=== PATIENT | male | born 1940 | race Caucasian/White ===

== ENCOUNTER 2023-01-31 13:28 | Outpatient (AMB) | payer MEDICARE, SELFPAY ==
[2023-01-31 13:48] VITALS: BP 130/70; PULSE 57; BMI 33.3
--- NOTE | 2023-01-31 13:48 | HO.NEPHOV_ITS ---
HPI HPI Comments History of Present Illness Details Cheo is a 82 year old male whom I had the pleasure of seeing in follow up for CKD and hypertension. He had a new diagnosis of HOCM and is on metoprolol. He did not undergo genetic testing. His A1c has been better and is on no oral hypoglycemic medications. He had no recent exacerbation of gout. He has no orthostasis. He denies chest pain, dizziness, PND, orthopnea, urinary symptoms or edema. His renal functions have been stable. There were no new medications initiated. He did not have any new complaints at time of this office visit. [facility] Medical History (Updated 01/31/23 @ 14:01 by Donald Larose MD) TIA (transient ischemic attack) Carotid artery disease Kidney stone Essential (primary) hypertension Chronic kidney disease, stage 3a Surgical History (Updated 01/31/23 @ 14:01 by Tatiana Nieves MA) Status post carotid surgery S/P hip replacement H/O vasectomy H/O hemorrhoidectomy Social History (Updated 01/31/23 @ 13:54 by Tatiana Nieves MA) Alcohol intake: never Patient Tobacco Use Status: Never used Tobacco Vital Signs 01/31/23 13:48 Height 5 ft 10.5 in Weight 235 lb 2 oz BMI 33.3 BP 130/70 Blood Pressure Location Lt brachial Position Sitting Pulse 57 Pulse Source Pulse Oximeter Physical Exam Vital Signs: Last Vital Signs Pulse 57 01/31/23 13:48 BP 130/70 01/31/23 13:48 BMI result Body Mass Index 33.3 Const General: comfortable and no acute distress Orientation/consciousness: patient oriented x3 HEENT Head: Yes normocephalic Mouth: Normal oral and palatal mucosa present Eyes EOM: EOMs intact bilaterally Neck Neck: Yes supple Resp Auscultation: clear to auscultation bilaterally Cardio Jugular venous distension: no JVD Rate: regular rate Heart sounds: Murmur heart sound present GI Palpation (GI): Soft to palpation Auscultation: normal bowel sounds General: Yes no CVA tenderness Back/Spine/Pelvis Back: no CVA tenderness Skin General skin exam: no rashes or lesions noted Neuro General: patient oriented x3 and moves all extremities Extrem General: Yes no pedal edema Results Reviewed Results Reviewed: CHEM GENERAL Na 140 K 5.1 Cl 104 Bicarb 24 Anion 12 Glucose 91 BUN 30 H Creatinine 1.4 H Calcium 10.5 Phos 3.5 Albumin 5.2 URINE OTHER Urine Protein 8 TP/Creat 0.05 Urine Creat 164.3 Assessment & Plan Assessment & Plan (1) Chronic kidney disease, stage 3a: Code(s): N18.31 - Chronic kidney disease, stage 3a (2) Essential (primary) hypertension: Code(s): I10 - Essential (primary) hypertension (3) Kidney stone: Code(s): N20.0 - Calculus of kidney Plan Renal function stable at baseline On ACEI- tolerating well Avoid NSAID's if possible Keep up with good hydration Needs to loose weight No active issues with renal stones May be candidate for Jardiance/Farxiga Follow up blood work/urine studies ordered All his and his 's questions answered Time for documentation/ data review/encounter 41 minutes Coding Level of Care Code Est Pt Level 4 (70284) Diagnoses Chronic kidney disease, stage 3a N18.31 Essential (primary) hypertension I10 Kidney stone N20.0
== END 2023-01-31 14:39 | disposition home or self-care (01) ==
PROVIDERS: Visit Provider Internal Medicine Nephrology
DX: N18.31 Chronic kidney disease, stage 3a (principal); I12.9 Hypertensive chronic kidney disease with stage 1 through stage 4 chronic kidney disease, or unspecified chronic kidney disease; N20.0 Calculus of kidney
CPT/HCPCS: 99214

== ENCOUNTER → 2023-01-31 13:28 | Outpatient (BNVA) | payer MEDICARE, SELFPAY | PROVIDERS: Visit Provider Internal Medicine Nephrology | DX: I12.9 Hypertensive chronic kidney disease with stage 1 through stage 4 chronic kidney disease, or unspecified chronic kidney disease (principal); N18.31 Chronic kidney disease, stage 3a; N20.0 Calculus of kidney | CPT/HCPCS: 99212 ==

== ENCOUNTER 2023-08-11 12:09 | Outpatient (AMB) | payer MEDICARE, SELFPAY ==
[2023-08-11 12:16] VITALS: BP 128/64; PULSE 50; O2SAT 92; BMI 32.0
--- NOTE | 2023-08-11 12:16 | HO.NEPHOV ---
Vital Signs 08/11/23 12:16 Height 5 ft 10.5 in Weight 226 lb BMI 32.0 BP 128/64 Blood Pressure Location Lt brachial Position Sitting Pulse 50 Pulse Source Pulse Oximeter Pulse Oximetry (%) 92 Oxygen Delivery Method Room Air Intake Visit Reasons: 6M follow up/ Confirmed Ironer Required: No Accompanied by: Spouse Allergies Penicillins Allergy (Verified 08/11/23 12:21) Unknown tramadol Allergy (Verified 08/11/23 12:21) Unknown bee venom Allergy (Uncoded 01/31/23 13:34) Unknown HPI Comments Details: Cheo is a 82 year old male whom I had the pleasure of seeing in follow up for CKD and hypertension. He has a diagnosis of HOCM and is on metoprolol. He did not undergo genetic testing. He had no recent exacerbation of gout. He has no orthostasis. He denies chest pain, dizziness, PND, orthopnea, urinary symptoms or edema. His renal functions have been stable. There were no new medications initiated. He did not have any new complaints at time of this office visit. [facility] Medical History TIA (transient ischemic attack) Carotid artery disease Kidney stone Essential (primary) hypertension Chronic kidney disease, stage 3a Surgical History Status post carotid surgery S/P hip replacement H/O vasectomy H/O hemorrhoidectomy Social History Alcohol intake: never Patient Tobacco Use Status: Never used Tobacco Physical Exam Vital Signs: Last Vital Signs Pulse 50 08/11/23 12:16 BP 128/64 08/11/23 12:16 Pulse Ox 92 08/11/23 12:16 Oxygen Delivery Method Room Air 08/11/23 12:16 BMI result Body Mass Index 32.0 Const General: comfortable and no acute distress Orientation/consciousness: patient oriented x3 HEENT Head: Yes normocephalic Mouth: Normal oral and palatal mucosa present Eyes EOM: EOMs intact bilaterally Neck Neck: Yes supple Resp Auscultation: clear to auscultation bilaterally Cardio Jugular venous distension: no JVD Rate: regular rate GI Palpation (GI): Soft to palpation Auscultation: normal bowel sounds General: Yes no CVA tenderness Back/Spine/Pelvis Back: no CVA tenderness Skin General skin exam: no rashes or lesions noted Neuro General: patient oriented x3 and moves all extremities Extrem General: Yes no pedal edema Results Reviewed Nephrology Results: No Data to Display Assessment & Plan Assessment & Plan (1) Chronic kidney disease, stage 3a: Code(s): N18.31 - Chronic kidney disease, stage 3a Category: Medical (2) Essential (primary) hypertension: Code(s): I10 - Essential (primary) hypertension Category: Medical (3) Kidney stone: Code(s): N20.0 - Calculus of kidney Category: Medical (4) Hyperuricemia: Code(s): E79.0 - Hyperuricemia without signs of inflammatory arthritis and tophaceous disease Category: Medical Plan Renal function stable at baseline On ACEI- tolerating well Avoid NSAID's if possible Keep up with good hydration Needs to loose weight No active issues with renal stones If his K goes on 5.5,I shall start Kayexalate 30 Gm once a week May be candidate for Mariel/Nilay Follow up blood work ordered All his and his 's questions answered Orders: Orders Blood Urea Nitrogen Today E79.0 - Hyperuricemia without signs of inflammatory arthritis and tophaceous disease, I10 - Essential (primary) hypertension, N18.31 - Chronic kidney disease, stage 3a, N20.0 - Calculus of kidney Creatinine Today E79.0 - Hyperuricemia without signs of inflammatory arthritis and tophaceous disease, I10 - Essential (primary) hypertension, N18.31 - Chronic kidney disease, stage 3a, N20.0 - Calculus of kidney Electrolytes Today E79.0 - Hyperuricemia without signs of inflammatory arthritis and tophaceous disease, I10 - Essential (primary) hypertension, N18.31 - Chronic kidney disease, stage 3a, N20.0 - Calculus of kidney Coding Level of Care Code Est Pt Level 4 (27236) Diagnoses Chronic kidney disease, stage 3a N18.31 Essential (primary) hypertension I10 Kidney stone N20.0 Hyperuricemia E79.0
== END 2023-08-11 12:52 | disposition home or self-care (01) ==
PROVIDERS: Visit Provider Internal Medicine Nephrology
DX: N18.31 Chronic kidney disease, stage 3a (principal); I10 Essential (primary) hypertension; N20.0 Calculus of kidney; E79.0 Hyperuricemia without signs of inflammatory arthritis and tophaceous disease
CPT/HCPCS: 99214

== ENCOUNTER → 2023-08-11 12:09 | Outpatient (BNVA) | payer MEDICARE, SELFPAY | PROVIDERS: Visit Provider Internal Medicine Nephrology | DX: I12.9 Hypertensive chronic kidney disease with stage 1 through stage 4 chronic kidney disease, or unspecified chronic kidney disease (principal); N18.31 Chronic kidney disease, stage 3a; N20.0 Calculus of kidney; E79.0 Hyperuricemia without signs of inflammatory arthritis and tophaceous disease | CPT/HCPCS: 99212 ==

== ENCOUNTER 2024-02-09 13:55 | Outpatient (AMB) | payer MEDICARE, SELFPAY ==
--- NOTE | 2024-02-09 14:06 | HO.NEPHOV ---
Vital Signs 02/09/24 14:07 Height 55 ft 10 in Weight 227 lb 8 oz BMI 0.4 BP 118/60 Blood Pressure Location Lt brachial Position Sitting Pulse 53 Pulse Source Pulse Oximeter Pulse Oximetry (%) 92 Oxygen Delivery Method Room Air Intake Visit Reasons: 6 mon follow up-Conf Investment Strategist Required: No Accompanied by: Spouse Allergies Penicillins Allergy (Verified 02/09/24 14:08) Unknown tramadol Allergy (Verified 02/09/24 14:08) Unknown bee venom Allergy (Uncoded 01/31/23 13:34) Unknown HPI Comments Details: Cheo is a 82 year old male whom I had the pleasure of seeing in follow up for CKD and hypertension. He has a diagnosis of HOCM and is on metoprolol. He did not undergo genetic testing. He had no recent exacerbation of gout. He has no orthostasis. He denies chest pain, dizziness, PND, orthopnea, urinary symptoms or edema. His renal functions have been stable. He did not have any new complaints at time of this office visit. [facility] Medical History TIA (transient ischemic attack) Carotid artery disease Kidney stone Essential (primary) hypertension Chronic kidney disease, stage 3a Surgical History Status post carotid surgery S/P hip replacement H/O vasectomy H/O hemorrhoidectomy Social History Alcohol intake: never Patient Tobacco Use Status: Never used Tobacco Review of Systems Const All systems reviewed & are unremarkable except as noted in HPI and below Physical Exam Vital Signs: Last Vital Signs Pulse 53 02/09/24 14:07 BP 118/60 02/09/24 14:07 Pulse Ox 92 02/09/24 14:07 Oxygen Delivery Method Room Air 02/09/24 14:07 BMI result Body Mass Index 0.4 Const General: comfortable and no acute distress Orientation/consciousness: patient oriented x3 HEENT Head: Yes normocephalic Mouth: Normal oral and palatal mucosa present Eyes EOM: EOMs intact bilaterally Neck Neck: Yes supple Resp Auscultation: clear to auscultation bilaterally Cardio Jugular venous distension: no JVD Rate: regular rate GI Palpation (GI): Soft to palpation Auscultation: normal bowel sounds General: Yes no CVA tenderness Back/Spine/Pelvis Back: no CVA tenderness Skin General skin exam: no rashes or lesions noted Neuro General: patient oriented x3 and moves all extremities Extrem General: Yes no pedal edema Results Reviewed Nephrology Results: No Data to Display Assessment & Plan Assessment & Plan (1) Kidney stone: Code(s): N20.0 - Calculus of kidney Category: Medical (2) Chronic kidney disease, stage 3a: Code(s): N18.31 - Chronic kidney disease, stage 3a Category: Medical (3) Essential (primary) hypertension: Code(s): I10 - Essential (primary) hypertension Category: Medical (4) Hyperuricemia: Code(s): E79.0 - Hyperuricemia without signs of inflammatory arthritis and tophaceous disease Category: Medical Plan Renal function stable at baseline On ACEI- tolerating well Avoid NSAID's if possible Keep up with good hydration Needs to loose weight No active issues with renal stones Is a great candidate for Jardiance Follow up blood work ordered All his and his 's questions answered Orders: Orders Electrolytes 4 Months E79.0 - Hyperuricemia without signs of inflammatory arthritis and tophaceous disease, I10 - Essential (primary) hypertension, N18.31 - Chronic kidney disease, stage 3a, N20.0 - Calculus of kidney Creatinine 4 Months E79.0 - Hyperuricemia without signs of inflammatory arthritis and tophaceous disease, I10 - Essential (primary) hypertension, N18.31 - Chronic kidney disease, stage 3a, N20.0 - Calculus of kidney Blood Urea Nitrogen 4 Months E79.0 - Hyperuricemia without signs of inflammatory arthritis and tophaceous disease, I10 - Essential (primary) hypertension, N18.31 - Chronic kidney disease, stage 3a, N20.0 - Calculus of kidney Coding Level of Care Code Est Pt Level 4 (46314) Diagnoses Kidney stone N20.0 Chronic kidney disease, stage 3a N18.31 Essential (primary) hypertension I10 Hyperuricemia E79.0
[2024-02-09 14:07] VITALS: BP 118/60; PULSE 53; O2SAT 92
== END 2024-02-09 14:43 | disposition home or self-care (01) ==
PROVIDERS: Visit Provider Internal Medicine Nephrology
DX: N20.0 Calculus of kidney (principal); N18.31 Chronic kidney disease, stage 3a; I10 Essential (primary) hypertension
CPT/HCPCS: 99214

== ENCOUNTER → 2024-02-09 13:55 | Outpatient (BNVA) | payer MEDICARE, SELFPAY | PROVIDERS: Visit Provider Internal Medicine Nephrology | DX: E79.0 Hyperuricemia without signs of inflammatory arthritis and tophaceous disease (principal); I12.9 Hypertensive chronic kidney disease with stage 1 through stage 4 chronic kidney disease, or unspecified chronic kidney disease; N18.31 Chronic kidney disease, stage 3a | CPT/HCPCS: 99212 ==

== ENCOUNTER 2024-08-09 13:21 | Outpatient (AMB) | payer MEDICARE, SELFPAY ==
--- NOTE | 2024-08-09 13:40 | HO.NEPHOV_ITS ---
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 He has a diagnosis of HOCM and is on metoprolol. He did not undergo genetic testing. He had no recent exacerbation of gout. He has no orthostasis. He denies chest pain, dizziness, PND, orthopnea, urinary symptoms or edema. His renal functions have been stable. His serum K has gone up to 5.8 recently. He did not have any new complaints at time of this office visit. [facility] Medical History TIA (transient ischemic attack) Carotid artery disease Kidney stone Essential (primary) hypertension Chronic kidney disease, stage 3a Surgical History Status post carotid surgery S/P hip replacement H/O vasectomy H/O hemorrhoidectomy Social History Alcohol intake: never Patient Tobacco Use Status: Never used Tobacco Review of Systems Const All systems reviewed & are unremarkable except as noted in HPI and below Physical Exam Const General: comfortable and no acute distress Orientation/consciousness: patient oriented x3 HEENT Head: Yes normocephalic Mouth: Normal oral and palatal mucosa present Eyes EOM: EOMs intact bilaterally Neck Neck: Yes supple Resp Auscultation: clear to auscultation bilaterally Cardio Jugular venous distension: no JVD Rate: regular rate GI Palpation (GI): Soft to palpation Auscultation: normal bowel sounds General: Yes no CVA tenderness Back/Spine/Pelvis Back: no CVA tenderness Skin General skin exam: no rashes or lesions noted Neuro General: patient oriented x3 and moves all extremities Extrem General: Yes no pedal edema Results Reviewed Nephrology Results: No Data to Display Assessment & Plan Assessment & Plan (1) Kidney stone: Code(s): N20.0 - Calculus of kidney Category: Medical (2) Essential (primary) hypertension: Code(s): I10 - Essential (primary) hypertension Category: Medical (3) Chronic kidney disease, stage 3a: Code(s): N18.31 - Chronic kidney disease, stage 3a Category: Medical (4) Hyperuricemia: Code(s): E79.0 - Hyperuricemia without signs of inflammatory arthritis and tophaceous disease Category: Medical (5) Hyperkalemia: Code(s): E87.5 - Hyperkalemia Category: Medical Plan Renal function stable at baseline On ACEI- tolerating well Potassium high-I started him on Kayexalate 30 Gram once a week Avoid NSAID's if possible Keep up with good hydration Needs to loose weight No active issues with renal stones Is a great candidate for Jardiance Follow up blood work ordered All his and his 's questions answered Orders: Orders Blood Urea Nitrogen 2 Months E79.0 - Hyperuricemia without signs of inflammatory arthritis and tophaceous disease, E87.5 - Hyperkalemia, I10 - Essential (primary) hypertension, N18.31 - Chronic kidney disease, stage 3a, N20.0 - Calculus of kidney Electrolytes 2 Months E79.0 - Hyperuricemia without signs of inflammatory arthritis and tophaceous disease, E87.5 - Hyperkalemia, I10 - Essential (primary) hypertension, N18.31 - Chronic kidney disease, stage 3a, N20.0 - Calculus of kidney Creatinine 2 Months E79.0 - Hyperuricemia without signs of inflammatory arthritis and tophaceous disease, E87.5 - Hyperkalemia, I10 - Essential (primary) hypertension, N18.31 - Chronic kidney disease, stage 3a, N20.0 - Calculus of kidney Medications: New sodium polystyrene sulfonate 30 grams PO .Q once a week 453.6 grams 3RF Coding Level of Care Code Est Pt Level 4 (86156) Diagnoses Kidney stone N20.0 Essential (primary) hypertension I10 Chronic kidney disease, stage 3a N18.31 Hyperuricemia E79.0 Hyperkalemia E87.5
[2024-08-09 13:44] VITALS: BP 152/72; PULSE 50; O2SAT 94; BMI 33.0
--- OUTSIDE RECORDS SUMMARY | 2024-08-09 13:59 | XMS_ITS | Clinical Summary ---
Author Organization [facility] Address [address] [place] [address] Phone Care Team Providers Care Supervisor Cutting And Sewing Room Name Role Phone Dawit Kim MD Primary Care Provider [phone] Allergies Active Allergy Reactions Criticality Noted Date Comments Bee Venom 07/10/2020 Penicillins 06/22/2020 Tramadol 01/25/2022 Medications amLODIPine (NORVASC) 10 MG tablet Take 2 tablets by mouth 1 (one) time each day Active omega-3 (FISH OIL) 1000 MG capsule Take 1 capsule by mouth 2 (two) times a day Active Multiple Vitamin (MULTIVITAMIN ADULT PO) Take 1 tablet by mouth 1 (one) time each day Active aspirin (ST BENIGNO) 81 MG EC tablet Take 1 tablet by mouth 1 (one) time each day Active atorvastatin (LIPITOR) 40 MG tablet Take 1 tablet by mouth 1 (one) time each day Active cholecalciferol (VITAMIN D-3) 25 MCG (1000 UT) capsule Take 1 capsule by mouth 1 (one) time each day Active clopidogrel (PLAVIX) 75 MG tablet Take 1 tablet by mouth 1 (one) time each day Active metoprolol succinate XL (TOPROL XL) 50 MG 24 hr tablet Take 50 mg by mouth 1 (one) time each day 11/21/2021 Active lisinopril 20 MG tablet Take 1 tablet (20 mg total) by mouth 1 (one) time each day 90 tablet 3 10/22/2022 7 Active allopurinol (ZYLOPRIM) 100 MG tablet TAKE 1 TABLET BY MOUTH EVERY DAY 90 tablet 5 12/06/2022 Active Active Problems Problem Noted Date Diagnosed Date Carotid artery stenosis 01/25/2022 Heart failure with normal ejection fraction 12/28 Hyperlipidemia 01/25/2022 Hypertrophic cardiomyopathy 01/25/2022 Obese class I 01/25/2022 Type 2 diabetes mellitus 01/25/2022 Hypertension 01/22/2021 Acute nontraumatic kidney injury 06/22/2020 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 Stage 3a chronic kidney disease 06/22/2020 Gout 06/22/2020 Immunizations Immunization Administration Dates Next Due Influenza, Unspecified 02/09/2022 Moderna SARS-COV-2 07/29/2021,01/25/2021, 021,05/08/2020 Pneumococcal Conjugate 13-Valent 02/05/2020 Pneumococcal Polysaccharide 02/03/2021 Family History Medical History Relation Comments Heart disease Mother Hypertension Mother Relation Status Comments Father Mother Social History Tobacco Use Types Packs/Day Years Used Date Smoking Tobacco: Never Smokeless Tobacco: Never Tobacco Cessation:Counseling Given: Not Answered Alcohol Use Standard Drinks/Week Comments No 0 (1 standard drink = 0.6 oz pur e alcohol) Sex and Gender Information Value Date Recorded Sex Assigned at Not on file Legal Sex Male 5:24 PM EST Gender Identity Not on file Sexual Orientation Not on file Last Filed Vital Signs Vital Sign Reading Time Taken Comments Blood Pressure 132/70 07/19/2022 2:52 PM EDT Pulse 72 07/19/2022 2:52 PM EDT Temperature - - Respiratory Rate - - Oxygen Saturation 97% 01/22/2021 2:21 PM EDT Inhaled Oxygen Concentration - - Weight 104 kg (229 lb 12.8 oz) 07/19/2022 2:52 P M EDT Height 179.1 cm (5' 10.5 ) 06/26/2019 12:00 PM E DT Body Mass Index 32.51 06/26/2019 12:00 PM EDT Plan of Treatment Health Maintenance Due Date Last Done Comments Diabetes: Hemoglobin A1C 01/25/2022 Diabetes: Ophthalmology Exam 01/25/2022 Diabetes: Pedal Pulse Checked 01/25/2022 Diabetes: Sensory Foot Exam 01/25/2022 Diabetes: Visual Foot Exam 01/25/2022 Influenza Vaccine (Season Ended) 2024 02/09/2022 Pneumococcal Vaccine: 50+ Years Completed 02/03/2021, 02/05/2020 Pneumococcal Vaccine: Peds ( 0 to 5 Years) and At-Risk Patients (6 to 49 Years) Discontinued 02/03/2021, 02/05/2020 Hepatitis B Vaccine Aged Out No longe r eligible based on patient's age to complete this topic Insurance [facility] Medicare [facility] Medicare Care Teams Supervisor Cutting And Sewing Room Relationship Specialty Start Date End Date Dawit Kim MD [address] [place] [id number] PCP - General Internal Medicine 12/29/20
== END 2024-08-09 14:36 | disposition home or self-care (01) ==
LOC: HO.HKAS 13:22
PROVIDERS: Visit Provider Internal Medicine Nephrology
DX: N20.0 Calculus of kidney (principal); I10 Essential (primary) hypertension; N18.31 Chronic kidney disease, stage 3a; E79.0 Hyperuricemia without signs of inflammatory arthritis and tophaceous disease; E87.5 Hyperkalemia
CPT/HCPCS: 99214

== ENCOUNTER → 2024-08-09 13:21 | Outpatient (BNVA) | payer MEDICARE, SELFPAY | PROVIDERS: Visit Provider Internal Medicine Nephrology | DX: I12.9 Hypertensive chronic kidney disease with stage 1 through stage 4 chronic kidney disease, or unspecified chronic kidney disease (principal); N18.31 Chronic kidney disease, stage 3a; N20.0 Calculus of kidney; E79.0 Hyperuricemia without signs of inflammatory arthritis and tophaceous disease; E87.5 Hyperkalemia | CPT/HCPCS: 99212 ==

== ENCOUNTER 2024-11-15 12:01 | Outpatient (AMB) | payer MEDICARE, SELFPAY ==
--- NOTE | 2024-11-15 12:37 | HO.NEPHOV ---
Vital Signs 11/15/24 12:39 Height 5 ft 10 in Weight 228 lb 6 oz BMI 32.8 BP 138/72 Blood Pressure Location Lt brachial Position Sitting Pulse 51 Pulse Source Pulse Oximeter Pulse Oximetry (%) 94 Oxygen Delivery Method Room Air Intake Visit Reasons: 3mon follow-up w/labs-Conf Livestock Trader Required: No Accompanied by: Spouse Allergies Penicillins Allergy (Verified 11/15/24 12:38) Unknown tramadol Allergy (Verified 11/15/24 12:38) Unknown bee venom Allergy (Uncoded 01/31/23 13:34) Unknown HPI Comments Details: Cheo is a 83 year old male whom I had the pleasure of seeing in follow up for CKD and hypertension. He has a diagnosis of HOCM and is on metoprolol. He did not undergo genetic testing. He had no recent exacerbation of gout. He has no orthostasis. He denies chest pain, dizziness, PND, orthopnea, urinary symptoms or edema. His renal functions have been stable. His serum K is normal . He did not have any new complaints at time of this office visit. [facility] Medical History TIA (transient ischemic attack) Carotid artery disease Kidney stone Essential (primary) hypertension Chronic kidney disease, stage 3a Surgical History Status post carotid surgery S/P hip replacement H/O vasectomy H/O hemorrhoidectomy Social History Alcohol intake: never Patient Tobacco Use Status: Never used Tobacco Review of Systems Const All systems reviewed & are unremarkable except as noted in HPI and below Physical Exam Vital Signs: Last Vital Signs Pulse 51 11/15/24 12:39 BP 138/72 11/15/24 12:39 Pulse Ox 94 11/15/24 12:39 Oxygen Delivery Method Room Air 11/15/24 12:39 BMI result Body Mass Index 32.8 Const General: comfortable and no acute distress Orientation/consciousness: patient oriented x3 HEENT Head: Yes normocephalic Mouth: Normal oral and palatal mucosa present Eyes EOM: EOMs intact bilaterally Neck Neck: Yes supple Resp Auscultation: clear to auscultation bilaterally Cardio Jugular venous distension: no JVD Rate: regular rate GI Palpation (GI): Soft to palpation Auscultation: normal bowel sounds General: Yes no CVA tenderness Back/Spine/Pelvis Back: no CVA tenderness Skin General skin exam: no rashes or lesions noted Neuro General: patient oriented x3 and moves all extremities Extrem General: Yes no pedal edema Assessment & Plan Assessment & Plan (1) CKD (chronic kidney disease) stage 3, GFR 30-59 ml/min: Code(s): N18.30 - Chronic kidney disease, stage 3 unspecified Category: Medical Qualifiers: Chronic kidney disease stage 3 subtype: stage 3a (GFR 45-59) Qualified Code(s): N18.31 - Chronic kidney disease, stage 3a (2) Hypertension: Code(s): I10 - Essential (primary) hypertension Category: Medical Qualifiers: Hypertension type: primary hypertension Qualified Code(s): I10 - Essential (primary) hypertension Plan Renal function close to baseline On ACEI- tolerating well Potassium normal Avoid NSAID's if possible Keep up with good hydration Needs to loose weight No active issues with renal stones Is a great candidate for Jardiance Follow up blood work ordered All his and his 's questions answered Orders: Orders Creatinine 3 Months I10 - Essential (primary) hypertension, N18.30 - Chronic kidney disease, stage 3 unspecified Blood Urea Nitrogen 3 Months I10 - Essential (primary) hypertension, N18.30 - Chronic kidney disease, stage 3 unspecified Electrolytes 3 Months I10 - Essential (primary) hypertension, N18.30 - Chronic kidney disease, stage 3 unspecified Coding Level of Care Code Est Pt Level 4 (94766) Diagnoses Stage 3a chronic kidney disease N18.31 Chronic kidney disease stage 3 subtype: stage 3a (GFR 45-59) Primary hypertension I10 Hypertension type: primary hypertension
[2024-11-15 12:39] VITALS: BP 138/72; PULSE 51; O2SAT 94; BMI 32.8
== END 2024-11-15 13:00 | disposition home or self-care (01) ==
LOC: HO.HKAS 12:02
PROVIDERS: Visit Provider Internal Medicine Nephrology
DX: N18.31 Chronic kidney disease, stage 3a (principal); I10 Essential (primary) hypertension
CPT/HCPCS: 99214

== ENCOUNTER → 2024-11-15 12:01 | Outpatient (BNVA) | payer MEDICARE, SELFPAY | PROVIDERS: Visit Provider Internal Medicine Nephrology | DX: I12.9 Hypertensive chronic kidney disease with stage 1 through stage 4 chronic kidney disease, or unspecified chronic kidney disease (principal); N18.31 Chronic kidney disease, stage 3a | CPT/HCPCS: 99212 ==

== ENCOUNTER 2025-02-26 12:07 | Outpatient (AMB) | payer MEDICARE, SELFPAY ==
--- OUTSIDE RECORDS SUMMARY | 2025-02-23 23:59 | XMS_ITS | Continuity of Care Document ---
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 Name Role Phone Julio FLORES, Dawit Primary Care Physician [phone] [place] [facility] [place] - 02/23/[address] [address]- Encounter Type: Triage Allergies, Adverse Reactions, Alerts Substance Criticality Severity Reaction Reaction Severity Status penicillins hives Active traMADol got hospitalized A ctive Bee Stings hives Active Immunizations Given and Recorded Vaccine Date Status Refusal Reason influenza virus vaccine, inactivated 1 02/11/25 Gi yolis influenza virus vaccine, inactivated 2 02/22/23 Gi yolis influenza virus vaccine, inactivated 3 02/09/22 Gi yolis influenza virus vaccine, inactivated 4 02/03/21 Gi yolis SARS-CoV-2(COVID-19)mRNA-LNP vac([id number]) 5 01/25/25 Recorded SARS-CoV-2(COVID-19)mRNA-LNP vac(fre551) 01/21/24 Recorded SARS-CoV-2(COVID-19)mRNA-LNP vac(uun485) 02/01/23 Recorded SARS-CoV-2 (COVID-19) mRNA-1273 vaccine 07/29/21 R ecorded SARS-CoV-2 (COVID-19) mRNA-1273 vaccine 01/25/21 R ecorded SARS-CoV-2 (COVID-19) mRNA-1273 vaccine 06/05/20 R ecorded SARS-CoV-2 (COVID-19) mRNA-1273 vaccine 05/08/20 R ecorded pneumococcal 23-valent vaccine 6 02/03/21 Given pneumococcal 13-valent vaccine 02/05/20 Recorded 1Result Comment: [facility] [id number] 2Result Comment: [facility]# [id number] 3Result Comment: [facility] [id number] 4Result Comment: [id number] 5Result Comment: received at [facility] 6Result Comment: [facility] [id number] Medications Allopurinol 100 mg, By Mouth, Daily at bedtime, Refills 0, Maintenance, 11/12/19 10:05:00 AM EDT Start Date: 11/12/19 Status: Ordered Medication Dispense Status: Completed Total Allowed Fills: 1 Fills Dispensed: 0 amLODIPine 5 mg oral tablet 2 tablet, By Mouth, Daily, # 180 tablet, 1 Refills, Maintenance, 01/16/25 7:34:00 AM EDT, [facility] [id number], 177, cm, 09/10/24 10:01:00 EDT, Height, 101.8, kg, 06/05/24 13:14:00 EDT, Dry Weight Start Date: 01/16/25 Status: Ordered Medication Dispense Status: Completed Quantity: 180.0 Unit: tablet Total Allowed Fills: 1 Fills Dispensed: 0 aspirin 81 mg oral tablet 1 tablet = 81 mg, By Mouth, Daily, 0 Refills, Maintenance, 07/12/12 9:49:36 AM EDT Start Date: 07/12/12 Status: Ordered Medication Dispense Status: Completed Total Allowed Fills: 1 Fills Dispensed: 0 atorvastatin 40 mg oral tablet 1 tablet, By Mouth, Daily at bedtime, # 90 tablet, 1 Refills, Maintenance, 01/24/25 9:32:00 AM EDT,[facility]/pharmacy #[id number], 177, cm, 09/10/24 10:01:00 EDT, Height, 101.8, kg, 06/05/24 13:14:00 EDT, Dry Weight Start Date: 01/24/25 Status: Ordered Medication Dispense Status: Completed Quantity: 90.0 Unit: tablet Total Allowed Fills: 2 Fills Dispensed: 0 carvedilol 6.25 mg oral tablet 1, tablet, By Mouth, 2 times a day, # 180 tablet, Refills 3, Tot. Refills 3, Maintenance, 02/13/24 4:34:00 PM EST, Route to Pharmacy Electronically, [facility]/pharmacy #[id number], 175, cm, 02/13/24 16:01:00 EST, Height, 103.3, kg, 06/02/23 15:02:00 EST, Dry Weight Start Date: 02/13/24 Stop Date: 02/07/25 Status: Ordered Medication Dispense Status: Completed Quantity: 180.0 Unit: tablet Total Allowed Fills: 4 Fills Dispensed: 0 clopidogrel 75 mg oral tablet 1, tablet, By Mouth, Daily, # 90 tablet, Refills 1, Maintenance, 10/01/24 10:57:00 PM EDT, Route to Pharmacy Electronically, [id number], 177, cm, 09/10/24 10:01:00 EDT, Height, 101.8, kg, 06/05/2512:14:00 EDT, Dry Weight Start Date: 10/01/24 Status: Ordered Medication Dispense Status: Completed Quantity: 90.0 Unit: tablet Total Allowed Fills: 1 Fills Dispensed: 0 Fish Oil 1200 mg oral capsule 1 capsule = 1,200 mg, By Mouth, 2 times a day, 0 Refills, Maintenance, 04/26/23 3:01:00 PM EST, Partial fill upon patient request if the prescription is for a schedule II opioid drug. Start Date: 04/26/23 Status: Ordered Medication Dispense Status: Completed Total Allowed Fills: 1 Fills Dispensed: 0 Freestyle Lite Lancets See Instructions, # 100 each, Refills 3, Tot. Refills 3, Maintenance, DX: E11.9 test blood sugars 1time daily, 08/13/24 2:46:00 PM EDT, Supply, 177, cm, 08/13/24 11:06:00 EDT, Height, 101.8, kg, 06/05/24 13:14:00 EDT, Dry Weight Start Date: 08/13/24 Status: Ordered Medication Dispense Status: Completed Quantity: 100.0 Unit: each Total Allowed Fills: 4 Fills Dispensed: 0 Freestyle Lite Monitor See Instructions, # 1 each, Maintenance, DX:E11.9 test blood sugars 1 time daily, 08/13/24 2:45:00 PM EDT, Supply, 177, cm, 08/13/24 11:06:00 EDT, Height, 101.8, kg, 06/05/24 13:14:00 EDT, Dry Weight Start Date: 08/13/24 Status: Ordered Medication Dispense Status: Completed Quantity: 1.0 Unit: each Total Allowed Fills: 1 Fills Dispensed: 0 Freestyle Lite Test Strips See Instructions, # 100 each, Refills 3, Tot. Refills 3, Maintenance, DX: E11.9 Test blood sugars 1time daily, 08/13/24 2:45:00 PM EDT, Supply, 177, cm, 08/13/24 11:06:00 EDT, Height, 101.8, kg, 06/05/24 13:14:00 EDT, Dry Weight Start Date: 08/13/24 Status: Ordered Medication Dispense Status: Completed Quantity: 100.0 Unit: each Total Allowed Fills: 4 Fills Dispensed: 0 lisinopril 10 mg oral tablet 10 mg, 1, tablet, By Mouth, Daily, # 30 tablet, Refills 0, Maintenance, 04/26/23 3:00:00 PM EST, Partial fill upon patient request if the prescription is for a schedule II opioid drug. Start Date: 04/26/23 Status: Ordered Medication Dispense Status: Completed Quantity: 30.0 Unit: tablet Total Allowed Fills: 1 Fills Dispensed: 0 Multivitamin Tablet 1 tablet, By Mouth, Daily, # 30 tablet, 0 Refills, Maintenance, 07/12/12 9:50:37 AM EDT, Tablet Start Date: 07/12/12 Status: Ordered Medication Dispense Status: Completed Quantity: 30.0 Unit: tablet Total Allowed Fills: 1 Fills Dispensed: 0 Problem List Condition Confirmation Course Effective Dates Status H ealth Status Informant Carotid artery stenosis Confirmed Active Chronic kidney disease, stage 3a 1 Confirmed Active Gout Confirmed Active Heart failure with preserved ejection fraction Confirmed Active Hyperlipidemia associated with type 2 diabetes mellitus Confirmed Active Hypertension associated with type 2 diabetes mellitus Confirmed Active Hypertrophic cardiomyopathy Confirmed Active Obese class I Confirmed Active Diabetes mellitus, type 2 Confirmed Active 1Per chart review meets GFR criteria Social History Social History Type Response Smoking Status Never smoker entered on: 02/01/14 Sexual Orientation Self described orien tation: ; Straight or heterosexual Sex Sex Representation Male (finding) Patient Care team information Care Team Personnel Name: Mariya Simon MA Position: [facility] MA Member Role: Lifetime Consulting Physician Name: Donald Larose MD Position: [facility] Renal MD Member Role: Lifetime Consulting Physician Address: [address] [place] [address] [id number] [place] [address]- [place] Telecom: Name: Arielle Jacome Position: [facility] Outreach Member Role: Lifetime Consulting Physician Name: Tatiana Nieves Position: [facility] Nurse Member Role: Lifetime Consulting Physician Name: Lou Mcfarlane RN Position: [facility] SN RN Member Role: Primary Care Nurse Name: Dawit Kim MD Position: [facility] Physician - Primary Care Member Role: PCP Address: [address] [place] [address]- Telecom: Care Team Related Persons Name: ARIELLE MARTINO Insurance Providers Guarantor name: VARUN MARTINO Health Plan Information #: 1 Payer: MEDICARE B Payer Identifier: NA Member Number: [id number] Group Number: NA Subscriber Identifier: NA Relationship to Subscriber: self Coverage Type: NA Coverage Verification Date: NA Telecom: NA Address: Health Plan Information #: 2 Payer: [employer] SECONDARY ONLY Payer Identifier: NA Member Number: [id number] Group Number: NA Subscriber Identifier: NA Relationship to Subscriber: self Coverage Type: Medicare Other Coverage Verification Date: NA Telecom: Address:
[2025-02-26 12:03] VITALS: BP 145/77; PULSE 49; BMI 32.7
--- NOTE | 2025-02-26 12:03 | HO.NEPHOV_ITS ---
Vital Signs 02/26/25 12:03 Height 5 ft 10 in Weight 228 lb BMI 32.7 BP 145/77 H Blood Pressure Location Lt brachial Position Sitting Pulse 49 L Pulse Source Pulse Oximeter Intake Visit Reasons: 3mnth w labs-Conf Accompanied by: Self / Same As Patient Allergies Penicillins Allergy (Verified 02/26/25 12:04) Unknown tramadol Allergy (Verified 02/26/25 12:04) Unknown bee venom Allergy (Uncoded 01/31/23 13:34) Unknown HPI Comments Details: Cheo is a 84 year old male whom I had the pleasure of seeing by [facility] in follow up for CKD and hypertension. He has a diagnosis of HOCM and is on metoprolol. He did not undergo genetic testing. He had no recent exacerbation of gout. He has no orthostasis. He denies chest pain, dizziness, PND, orthopnea, urinary symptoms or edema. His renal functions have been stable. His serum K is normal . He did not have any new complaints at this time [facility] Medical History TIA (transient ischemic attack) Carotid artery disease Kidney stone Essential (primary) hypertension Chronic kidney disease, stage 3a Surgical History Status post carotid surgery S/P hip replacement H/O vasectomy H/O hemorrhoidectomy Social History Alcohol intake: never Patient Tobacco Use Status: Never used Tobacco Review of Systems Const All systems reviewed & are unremarkable except as noted in HPI and below Physical Exam Vital Signs: Last Vital Signs Pulse 49 L 02/26/25 12:03 BP 145/77 H 02/26/25 12:03 BMI result Body Mass Index 32.7 Telehealth Telehealth Telehealth Platform: Telephone Location of provider rendering services: practice address Location of patient: address on file Patient Identification confirmed using: Name, : Yes Telehealth method: voice only Patient verbally consented to treatment: Yes Patient verbally consented to billing insurance company: Yes Patient informed of any privacy concerns related to visit: No Minutes spent on Phone/Video with Pt.: 10 Assessment & Plan Assessment & Plan (1) Hypertension: Code(s): I10 - Essential (primary) hypertension Category: Medical Qualifiers: Hypertension type: primary hypertension Qualified Code(s): I10 - Essential (primary) hypertension (2) CKD (chronic kidney disease) stage 3, GFR 30-59 ml/min: Code(s): N18.30 - Chronic kidney disease, stage 3 unspecified Category: Medical Qualifiers: Chronic kidney disease stage 3 subtype: stage 3a (GFR 45-59) Qualified Code(s): N18.31 - Chronic kidney disease, stage 3a (3) Kidney stone: Code(s): N20.0 - Calculus of kidney Category: Medical (4) Hyperkalemia: Code(s): E87.5 - Hyperkalemia Category: Medical Plan Renal function close to baseline On ACEI- tolerating well BP is at not goal Started hydralazine 10 mg bid Potassium normal Avoid NSAID's if possible Keep up with good hydration Needs to loose weight No active issues with renal stones Is a great candidate for Jardiance Follow up blood work ordered All his and his 's questions answered Orders: Orders Electrolytes 3 Months E87.5 - Hyperkalemia, I10 - Essential (primary) hypertension, N18.31 - Chronic kidney disease, stage 3a, N20.0 - Calculus of kidney Blood Urea Nitrogen 3 Months E87.5 - Hyperkalemia, I10 - Essential (primary) hypertension, N18.31 - Chronic kidney disease, stage 3a, N20.0 - Calculus of kidney Creatinine 3 Months E87.5 - Hyperkalemia, I10 - Essential (primary) hypertension, N18.31 - Chronic kidney disease, stage 3a, N20.0 - Calculus of kidney Medications: New hydralazine 10 mg PO BID 180 tabs 3RF Coding Level of Care Code Est Pt Level 4 (80781) Diagnoses Primary hypertension I10 Hypertension type: primary hypertension Stage 3a chronic kidney disease N18.31 Chronic kidney disease stage 3 subtype: stage 3a (GFR 45-59) Kidney stone N20.0 Hyperkalemia E87.5
== END 2025-02-26 15:17 | disposition home or self-care (01) ==
LOC: HO.HKAS 12:07
PROVIDERS: PCP Internal Medicine; Visit Provider Internal Medicine Nephrology
DX: I10 Essential (primary) hypertension (principal); N18.31 Chronic kidney disease, stage 3a; N20.0 Calculus of kidney; E87.5 Hyperkalemia
CPT/HCPCS: 99214

== ENCOUNTER → 2025-02-26 12:07 | Outpatient (BNVA) | payer MEDICARE, SELFPAY | PROVIDERS: PCP Internal Medicine; Visit Provider Internal Medicine Nephrology | DX: I12.9 Hypertensive chronic kidney disease with stage 1 through stage 4 chronic kidney disease, or unspecified chronic kidney disease (principal); N18.31 Chronic kidney disease, stage 3a; N20.0 Calculus of kidney; E87.5 Hyperkalemia | CPT/HCPCS: 99212 ==